=== PATIENT | male | born 1995 | race Caucasian/White ===

== ENCOUNTER 2018-02-12 17:02 | Inpatient (IN) | payer BC ==
[2018-02-12] MEDS: morphine 2 MG INJ IV (18:12)
[2018-02-12] MEDS ORDERED: ACETAMINOPHEN 325 MG TAB PO (18:30)
[2018-02-12] MEDS ORDERED: NACL 0.9% 3 ML SYG IV (18:30)
[2018-02-12] MEDS ORDERED: DOCUSATE SODIUM 100 MG CAP PO (18:30)
[2018-02-12] MEDS ORDERED: MAGNESIUM HYDROXIDE 30ML CUP PO (18:30)
[2018-02-12] MEDS: D5W-0.45 NACL + KCL 20 MEQ 1,000 ML IV (20:16)
[2018-02-12] MEDS ORDERED: ZOLPIDEM 5 MG TAB PO (21:00)
[2018-02-12] MEDS: HEPARIN 5,000 UNIT/0.5 ML VIAL SC (21:27)
[2018-02-12] MEDS: HYDROCODONE/APAP (5/325) TAB PO (21:28)
[2018-02-13 00:29] LABS: ADD MAN DIFF? NO
[2018-02-13 00:31] LABS: WHITE BLOOD COUNT 8.6 10^3/ul (4.8-10.8)
[2018-02-13 00:32] LABS: BASOPHILS % 0.2 % (0.0-2.0); EOSINOPHILS % 0.5 % (0.0-7.0); HEMATOCRIT 42.7 % (42.0-52.0); HEMOGLOBIN 14.3 g/dl (14.0-18.0); LYMPHOCYTES % 22.6 % (15.0-51.0); MEAN CORPUSCULAR HEMOGLOBIN 31.1 pg (29.0-33.0); MEAN CORPUSCULAR HGB CONC 33.5 g/dl (32.0-37.0); MEAN CORPUSCULAR VOLUME 92.8 fl (82.0-101.0); MEAN PLATELET VOLUME 10.4 fl (7.4-10.4); MONOCYTE # 0.9 10^3/ul (0.3-0.9); MONOCYTES % 10.8 % (0.0-11.0); NEUTROPHIL # 5.7 10^3/ul (1.6-7.5); NEUTROPHILS % 65.6 % (39.0-77.0); PLATELET COUNT 225 10^3/UL (140-415); RED CELL DISTRIBUTION WIDTH 11.4 % (11.5-14.5)
[2018-02-13 00:56] LABS: ANION GAP 12 (8-16); BLOOD UREA NITROGEN 10 mg/dl (7-20); CALCIUM 9.3 mg/dl (8.4-10.2); CARBON DIOXIDE 32 mmol/L (21-31); CHLORIDE 102 mmol/L (97-110); CREATININE 1.03 mg/dl (0.61-1.24); GLUCOSE 105 mg/dl (70-220); POTASSIUM 4.3 mmol/L (3.5-5.1); SODIUM 142 mmol/L (135-144)
[2018-02-13] MEDS: morphine 2 MG INJ IV ×4 (02:21→21:09)
[2018-02-13 06:12] LABS: ADD MAN DIFF? NO
[2018-02-13] MEDS: D5W-0.45 NACL + KCL 20 MEQ 1,000 ML IV ×2 (06:14→14:16)
[2018-02-13 06:25] LABS: BASOPHILS % 0.4 % (0.0-2.0); EOSINOPHILS # 0.1 10^3/ul (0.0-0.5); EOSINOPHILS % 1.4 % (0.0-7.0); HEMATOCRIT 44.7 % (42.0-52.0); LYMPHOCYTES # 2.1 10^3/ul (0.8-2.9); LYMPHOCYTES % 25.7 % (15.0-51.0); MEAN CORPUSCULAR HEMOGLOBIN 31.2 pg (29.0-33.0); MEAN CORPUSCULAR HGB CONC 33.6 g/dl (32.0-37.0); MEAN CORPUSCULAR VOLUME 92.9 fl (82.0-101.0); MEAN PLATELET VOLUME 10.6 fl (7.4-10.4); MONOCYTES % 12.2 % (0.0-11.0); NEUTROPHIL # 4.9 10^3/ul (1.6-7.5); NEUTROPHILS % 60.1 % (39.0-77.0); PLATELET COUNT 243 10^3/UL (140-415); RED BLOOD COUNT 4.81 10^6/ul (4.70-6.10); RED CELL DISTRIBUTION WIDTH 11.4 % (11.5-14.5)
[2018-02-13 06:25] LABS: WHITE BLOOD COUNT 8.1 10^3/ul (4.8-10.8)
[2018-02-13] MEDS ORDERED: CEFAZOLIN 1 GM INJ (07:00)
[2018-02-13] MEDS ORDERED: METOCLOPRAMIDE 10 MG INJ (07:00)
[2018-02-13] MEDS ORDERED: DEXAMETHASONE 4 MG/ML 1 ML INJ (07:00)
[2018-02-13 07:36] LABS: ANION GAP 14 (8-16); BLOOD UREA NITROGEN 10 mg/dl (7-20); CALCIUM 9.5 mg/dl (8.4-10.2); CARBON DIOXIDE 30 mmol/L (21-31); CHLORIDE 104 mmol/L (97-110); CREATININE 0.92 mg/dl (0.61-1.24); GLUCOSE 96 mg/dl (70-220); MAGNESIUM 1.9 mg/dl (1.7-2.5); PHOSPHORUS 4.5 mg/dl (2.5-4.9); POTASSIUM 4.3 mmol/L (3.5-5.1); SODIUM 144 mmol/L (135-144)
[2018-02-13] MEDS: HEPARIN 5,000 UNIT/0.5 ML VIAL SC (08:36)
[2018-02-13 09:09] LABS: HEMOGLOBIN A1C 5.2 % (0-5.9)
[2018-02-13] MEDS ORDERED: PROPOFOL 20 ML (15:21)
[2018-02-13] MEDS ORDERED: MIDAZOLAM 1 MG/ML 2 ML INJ (15:21)
[2018-02-13] MEDS ORDERED: ONDANSETRON 4 MG INJ (15:21)
[2018-02-13] MEDS ORDERED: FENTAnyl 50 MCG/ML VIAL (15:21)
[2018-02-13] MEDS ORDERED: LIDOCAINE 2% (SDV) 5 ML INJ (15:22)
[2018-02-13] MEDS ORDERED: PHENYLephrine (100 MCG/ML) 5ML SYG (15:34)
[2018-02-13] MEDS: POLYMYXIN/BACITRACIN 1L IRRIG (16:14)
[2018-02-13] MEDS ORDERED: HYDROmorphONE 2 MG/ML SYG (17:38)
[2018-02-13] MEDS ORDERED: ROPIVACAINE 0.5 % 30 ML VIAL (17:44)
[2018-02-13] MEDS ORDERED: NACL 0.9% 3 ML SYG IV (19:00)
[2018-02-13] MEDS: LABETALOL HCL 20MG INJ IV (20:00)
[2018-02-13] MEDS: SOD CHLORIDE 0.9% 1,000 ML IV (20:54)
[2018-02-13] MEDS: ONDANSETRON 4 MG INJ IV (21:09)
[2018-02-13] MEDS: CEFAZOLIN 1 GM/50 ML (PMX) 50 ML IVPB (21:10)
[2018-02-14] MEDS: morphine 2 MG INJ IV ×2 (00:37→07:49)
[2018-02-14] MEDS: CEFAZOLIN 1 GM/50 ML (PMX) 50 ML IVPB ×2 (04:35→10:46)
[2018-02-14] MEDS: SOD CHLORIDE 0.9% 1,000 ML IV (04:57)
[2018-02-14] MEDS: HYDROCODONE/APAP (5/325) TAB PO ×4 (06:39→21:55)
[2018-02-14] MEDS: ENOXAPARIN 40 MG/0.4 ML SYG SC (09:58)
[2018-02-14] MEDS: morphine LIQ (10 MG/5 ML) CUP PO ×2 (14:35→18:52)
[2018-02-15] MEDS: morphine LIQ (10 MG/5 ML) CUP PO ×2 (01:57→07:43)
[2018-02-15] MEDS: ENOXAPARIN 40 MG/0.4 ML SYG SC (08:31)
[2018-02-15] MEDS: HYDROCODONE/APAP (5/325) TAB PO ×2 (11:31→16:20)
== END 2018-02-15 17:10 | disposition home health service (06) | DRG 494 ==
LOC: MS2 17:02
PROC: 0QSG06Z Reposition Right Tibia with Intramedullary Internal Fixation Device, Open Approach (ICD-10-PCS; principal; 2018-02-13 13:00)
DX: S82.301A Unspecified fracture of lower end of right tibia, initial encounter for closed fracture (principal); S82.391A Other fracture of lower end of right tibia, initial encounter for closed fracture; X58.XXXA Exposure to other specified factors, initial encounter; Y93.66 Activity, soccer
CPT/HCPCS: 73590; 80048; 83036; 83735; 84100; 85025; 97110; 97116; 97161; 97530

== ENCOUNTER 2018-11-09 16:19 | Emergency (ER) | payer BC ==
[2018-11-09] MEDS: ONDANSETRON (ODT) 4 MG TAB ODT (21:33)
[2018-11-09] MEDS: FAMOTIDINE 20 MG TAB PO (21:33)
[2018-11-09] MEDS: IBUPROFEN 800 MG TAB PO (21:34)
== END 2018-11-09 21:45 | disposition home or self-care (01) ==
LOC: FTE 16:19
DX: B34.9 Viral infection, unspecified (principal)
CPT/HCPCS: 99283; Z7502